=== PATIENT | female | born 1940 | race Two or more races ===

== ENCOUNTER 2020-12-03 13:25 | Emergency (ER) | payer OTHER ==
[~2020-12-03] VITALS: Ht 152.4 cm; Wt 56.7 kg
== END 2020-12-03 17:49 | disposition home or self-care (01) ==
LOC: ER 13:25
DX: S83.8X1A Sprain of other specified parts of right knee, initial encounter (principal); X58.XXXA Exposure to other specified factors, initial encounter; Y93.89 Activity, other specified; Y92.89 Other specified places as the place of occurrence of the external cause; Y99.8 Other external cause status

== ENCOUNTER 2021-04-01 11:27 | Emergency (ER) | payer OTHER ==
[~2021-04-01] VITALS: Ht 149.9 cm; Wt 54.4 kg
[2021-04-01] MEDS ORDERED: COZAAR50 MG (11:38)
[2021-04-01] MEDS ORDERED: PLAVIX75 MG (11:38)
[2021-04-01] MEDS ORDERED: SYNTHROID75 MCG (11:38)
[2021-04-01] MEDS ORDERED: TOPROL XL25 M1 (11:39)
[2021-04-01] MEDS ORDERED: ATORVASTATIN CA10 MG (11:39)
[2021-04-01] MEDS ORDERED: AMLODIPINE-OLM1 EAC3 (11:39)
== END 2021-04-01 13:56 | disposition home or self-care (01) ==
LOC: ER 11:27
DX: M25.561 Pain in right knee (principal)

== ENCOUNTER 2021-08-23 10:03 | Emergency (ER) | payer OTHER ==
[~2021-08-23] VITALS: Ht 152.4 cm; Wt 54.4 kg
[~2021-08-23 10:03] MED LIST: AMLODIPINE-OLM1 EAC3; ATORVASTATIN CA10 MG; COZAAR50 MG; PLAVIX75 MG; SYNTHROID75 MCG; TOPROL XL25 M1
== END 2021-08-23 11:59 | disposition home or self-care (01) ==
LOC: ER 10:03
DX: R42 Dizziness and giddiness (principal); H61.23 Impacted cerumen, bilateral

== ENCOUNTER 2021-09-01 07:56 | Outpatient (CLI) | payer OTHER | END 2021-09-01 08:06 | disposition home or self-care (01) | LOC: SONOGRAMA 07:56 | DX: R10.11 Right upper quadrant pain (principal) ==

== ENCOUNTER 2021-09-07 22:28 | Emergency (ER) | payer OTHER ==
[~2021-09-07] VITALS: Ht 152.4 cm; Wt 52.2 kg
[2021-09-08] MEDS ORDERED: VISTARIL50 MG PO (03:33)
[2021-09-08] MEDS ORDERED: MOTION SICKNESS25 M1 PO (03:33)
== END 2021-09-08 03:54 | disposition home or self-care (01) ==
LOC: ER 22:28
DX: R42 Dizziness and giddiness (principal); F41.9 Anxiety disorder, unspecified

== ENCOUNTER 2021-09-21 07:14 | Outpatient (CLI) | payer OTHER ==
[~2021-09-21 07:14] MED LIST changes: +MOTION SICKNESS25 M1 PO; +VISTARIL50 MG PO
== END 2021-09-21 07:22 | disposition home or self-care (01) ==
LOC: TOM 07:14
DX: K57.90 Diverticulosis of intestine, part unspecified, without perforation or abscess without bleeding (principal); K86.89 Other specified diseases of pancreas

== ENCOUNTER 2022-01-25 10:43 | Emergency (ER) | payer OTHER ==
[~2022-01-25] VITALS: Ht 152.4 cm; Wt 54.4 kg
== END 2022-01-25 15:24 | disposition home or self-care (01) ==
LOC: ER 10:43
DX: M54.50 Low back pain, unspecified (principal); M54.2 Cervicalgia; I10 Essential (primary) hypertension; Z88.6 Allergy status to analgesic agent; Z88.2 Allergy status to sulfonamides; Z88.8 Allergy status to other drugs, medicaments and biological substances